=== PATIENT | male | born 1995 | race Caucasian/White ===

== ENCOUNTER 2019-01-29 09:20 | Emergency (ER) | payer MEDICAID, OTHER ==
[~2019-01-29] VITALS: Ht 182.9 cm; Wt 59.7 kg
[~2019-01-29 09:20] MED LIST: ACET-2119 PO; OXYC-150 PO
--- NOTE | 2019-01-29 09:43 | NUR ---
DR TREJO NOTIFIED OF PT'S CP WHICH PT STATES IS RELATED TO HIS CA, NO EKG REQUIRED PER DR TREJO
[2019-01-29] MEDS ORDERED: aspirin 81mg tab.chew PO ONE (10:55)
[2019-01-29] MEDS ORDERED: HYDROmorphone 2mg/ml vial IV ONE (11:05)
[2019-01-29] MEDS ORDERED: HYDROmorphone 1 mg/ml syringe IV ONE ×2 (11:15→13:30)
--- NOTE | 2019-01-29 11:55 | NUR ---
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
[2019-01-29 12:12] LABS: ALANINE AMINOTRANSFERASE 28 U/L (12-78); ALBUMIN 3.6 G/DL (3.4-5.0); ALBUMIN/GLOBULIN RATIO 0.7 (1.1-1.5); ALKALINE PHOSPHATASE 442 IU/L (46-116); ANION GAP 8 (8-16); ASPARTATE AMINO TRANSFERASE 24 U/L (10-37); BILIRUBIN,TOTAL 0.6 MG/DL (0.1-1.0); BLOOD UREA NITROGEN 17 MG/DL (7-18); BUN/CREATININE RATIO 19.5 (5.4-32.0); CALCIUM 9.9 MG/DL (8.5-10.1); CHLORIDE 98 MMOL/L (99-107); CREATININE 0.87 MG/DL (0.60-1.10); GLUCOSE 132 MG/DL (70-104); POTASSIUM 3.6 MMOL/L (3.5-5.1); SODIUM 134 MMOL/L (135-145); eGFR > 90 ML/MIN
--- NOTE | 2019-01-29 12:20 | NUR ---
Refused ASA. Celeste aware.
[2019-01-29] MEDS ORDERED: iohexol 350MG/ML 100ml bottle IV ONE (12:29)
[2019-01-29 12:32] LABS: BASOPHILS # (AUTO) 0.1 X10'3 (0-0.2); BASOPHILS % (AUTO) 0.7 % (0-1); EOSINOPHILS % (AUTO) 0.3 % (0-6); HEMATOCRIT 40.9 % (42.0-52.0); HEMOGLOBIN 14.2 g/dl (14.0-17.9); LYMPHOCYTES # (AUTO) 1.3 X10'3 (1.1-4.8); LYMPHOCYTES % (AUTO) 9.3 % (21-51); MEAN CORPUSCULAR HEMOGLOBIN 32.8 PG (27.0-31.0); MEAN CORPUSCULAR HGB CONC 34.8 g/dL (33.0-36.5); MEAN CORPUSCULAR VOLUME 94.3 FL (78-98); MEAN PLATELET VOLUME 7.6 FL (7.4-10.4); MONOCYTES # (AUTO) 2.3 X10'3 (0-0.9); MONOCYTES % (AUTO) 16.8 % (2-12); NEUTROPHILS # (AUTO) 9.9 X10'3 (1.8-7.7); NEUTROPHILS % (AUTO) 72.9 % (42-75); PLATELET COUNT 325 X10'3 (140-440); RED BLOOD COUNT 4.33 X10'6 (4.70-6.10); RED CELL DISTRIBUTION WIDTH 13.8 % (11.5-14.5); WHITE BLOOD COUNT 13.6 X10'3 (4.5-11.0)
--- NOTE | 2019-01-29 12:44 | NUR ---
TO CT SCAN; PT HAS A POWER PORT TO RIGHT CHEST WALL THAT IS ACCESSED WITH A TEMPLE NEEDLE AND AN ADDED "Y" PORT: FLUSHED WELL: DISCUSSED WITH CT SCAN
[2019-01-29 12:54] LABS: TOTAL CELLS COUNTED 100
[2019-01-29 13:00] LABS: ACANTHOCYTES FEW; PLATELET ESTIMATE NORMAL
--- NOTE | 2019-01-29 13:02 | NUR ---
patient takes eight 4 mg tablets of dilaudid daily and then 8 mg every 4 hours as needed
--- NOTE | 2019-01-29 13:04 | NUR ---
patient also takes two 30 mg ms contin every 12 hours as well
[2019-01-29] MEDS ORDERED: HYDROmorphone 2mg/ml vial IV SCH (13:05)
[2019-01-29] MEDS ORDERED: heparin sodium, porcine/PF 100unit/ml 5ML syringe IV SCH (14:20)
[2019-01-29 14:45] VITALS: BP 115/75
== END 2019-01-29 14:47 | disposition home or self-care (01) ==
LOC: ER 09:21
DX: F11.23 Opioid dependence with withdrawal (principal); C64.2 Malignant neoplasm of left kidney, except renal pelvis; C78.00 Secondary malignant neoplasm of unspecified lung; R07.9 Chest pain, unspecified; M25.512 Pain in left shoulder; F12.10 Cannabis abuse, uncomplicated; Z88.0 Allergy status to penicillin; Z90.5 Acquired absence of kidney
CPT/HCPCS: 36415; 71045; 71275; 80053; 83880; 84484; 85025; 93005; 96374; 96375; 96376; 99284; J1170; J1642; Q9967

== ENCOUNTER 2019-02-18 07:03 | Emergency (ER) | payer MEDICAID ==
[~2019-02-18] VITALS: Ht 182.9 cm; Wt 61.0 kg
[2019-02-18] MEDS ORDERED: ondansetron/PF 4mg/2ml inj IV ONE (08:30)
[2019-02-18] MEDS ORDERED: HYDROmorphone 2mg/ml vial IV ONE (08:30)
[2019-02-18] MEDS ORDERED: HYDROmorphone 1 mg/ml syringe IV ONE (08:50)
[2019-02-18 09:17] VITALS: BP 115/62
== END 2019-02-18 10:18 | disposition home or self-care (01) ==
LOC: ER 07:04
DX: C64.9 Malignant neoplasm of unspecified kidney, except renal pelvis (principal); C78.02 Secondary malignant neoplasm of left lung; R07.9 Chest pain, unspecified; M25.512 Pain in left shoulder; J45.909 Unspecified asthma, uncomplicated; F12.90 Cannabis use, unspecified, uncomplicated; Z98.890 Other specified postprocedural states; Z88.0 Allergy status to penicillin; Z88.1 Allergy status to other antibiotic agents; Z88.6 Allergy status to analgesic agent; Z79.899 Other long term (current) drug therapy
CPT/HCPCS: 93005; 96374; 96375; 99283; J2405; J1170